=== PATIENT | male | born 1940 | race Caucasian/White ===

== ENCOUNTER 2016-09-18 12:37 | Day surgery (SDC) | payer MEDICARE, BC ==
[~2016-09-18] VITALS: Ht 182.9 cm; Wt 95.0 kg
[~2016-09-18 12:37] MED LIST: ALBUTEROL0.63 MG/3 INH; STOOL SOFTENER240 MG PO; ZANTAC150 MG PO
[2016-09-18 13:31] LABS: BASOPHILS 0.5 % (0.0-2.0); EOSINOPHILS 2.1 % (0-7); HEMATOCRIT 49.5 % (42.0-54.0); HEMOGLOBIN 16.3 g/dL (13.5-17.5); IMMATURE GRANULOCYTES 0.2 % (0-5); LYMPHOCYTES 20.1 % (15-50); MCH 29.6 pg (26.0-34.0); MCHC 32.9 g/dL (31.0-37.0); MCV 89.8 fL (80.0-100.0); MONOCYTES 8.6 % (2-11); NEUTROPHILS 68.5 % (40-80); PLATELET COUNT 209 10x3/uL (130-400); RBC 5.51 10x6/uL (4.20-6.10); RDW 14.9 % (11.5-14.5); WBC 6.3 10x3/uL (4.8-10.8)
[2016-09-18 14:01] LABS: ANION GAP 8.6 mmol/L (8-16); CALCIUM 9.2 mg/dL (8.5-10.1); CREATININE - SERUM 1.2 mg/dL (0.6-1.3); POTASSIUM - SERUM 4.6 mmol/L (3.5-5.1)
[2016-09-18] MEDS ORDERED: PROTONIX40 MG PO (14:03)
[2016-09-18 14:07] VITALS: Ht 182.9 cm; Wt 95.0 kg
--- NOTE | 2016-09-18 14:22 | NUR ---
1420 CALLED XRAT TO DO CXR.
--- NOTE | 2016-09-18 17:00 | NUR ---
1650 BACK FROM COLONOSCOPY. SOME SLEEPY ENCOURAGED TO LIE ON LEFT SIDE AND PASS AIR. RESP EVEN AND NONLABORED AND C/L IN REACH.
--- NOTE | 2016-09-18 18:30 | NUR ---
1720 TOLERATING FULL LIQUIDS. RESP EVEN AND NONLABORED. C/L IN REACH. PASSED AIREARLIER AND CONTINUES TO DO SO.
--- NOTE | 2016-09-18 18:30 | NUR ---
1730 UP WITH ASSISTANCE AND VOIDED.
--- NOTE | 2016-09-18 18:31 | NUR ---
1735 DR. DELGADILLO ROUNDED.
--- NOTE | 2016-09-18 18:34 | NUR ---
1750 WENT OVER DISCHARGE INSTRUCTIONS. INSTRUCTED ON HIGH HFIBER DIET AND INFO GIVEN. INSTRUCTED METAMUCIL WILL HELP BULK STOOLS. INSTRUCTED NO NSAISA AND TO CALL DR GARNER OFFICE TOMORROW FOR A FOLLOW UP APPOINTMENT FOR A CECCAL POLYP. NUMBER PROVIDED TO CALL AND STRESSED IMPORTANCE OF THIS. ALSO INSTRUCTED ON NO NSAIDS AND LIST GONE OVER AND PROVIDED. SO PRESENT AND BOTH VERBALLY UNDERSTANDS.
--- NOTE | 2016-09-18 18:36 | NUR ---
1800 TO HOME VIA W/C WITH S.O.
--- NOTE | 2016-09-22 20:46 | OP ---
PATIENT NAME: ANIYAH GODOY MEDICAL RECORD: [id number] :41 LOCATION[facility] ADMISSION DATE: SURGEON: TRENA DELGADILLO MD DATE OF OPERATION: 09/18/2016 PROCEDURE: Colonoscopy with biopsy and polypectomy. REFERRING PHYSICIAN: Dr. Esteban Laura. INDICATIONS: Mr. Godoy is pleasant 76-year-old gentleman who has had symptoms of lower abdominal pain, constipation has a history of colon polyps. He presents for outpatient colonoscopy. PREMEDICATIONS: Total IV anesthesia (COPD) propofol 200 mg. INSTRUMENT: Olympus video colonoscope. PROCEDURE AND FINDINGS: After receiving informed consent, Mr. Godoy was placed in left lateral decubitus position and sedated as per anesthesia. After achieving an adequate level of sedation, digital rectal exam was performed that showed no external hemorrhoidal tags, fissures or fistulas, normal sphincter tone, no palpable rectal masses. Colonoscope was introduced per rectally and advanced to the cecum without difficulty. The cecum, IC valve, and appendiceal orifice were identified. Within the cecum adjacent to the appendiceal orifice was a diminutive polyp removed with hot biopsy forceps technique, a large complex polyp tucked proximally behind the IC valve was present and was cold biopsied (too large for conventional endoscopic polypectomy removal). As the colonoscope was withdrawn, careful inspection was made of the blevins of the colon. Overall, the mucosa had normal vascular and fold pattern. There was minimal patchy erythema in the ascending colon and biopsies were obtained to rule out microscopic colitis. A few diverticula were also seen scattered in the ascending colon. In the transverse colon were 3 polyps measuring 0.3-0.5 cm in size, sessile, removed with hot biopsy forcep technique. In the descending colon was a 0.5 cm sessile polyp removed with biopsy forcep technique. There was minimal patchy erythema in the sigmoid colon and biopsies were obtained to rule out microscopic colitis. There is moderate number of diverticula seen scattered in the sigmoid colon. In the distal sigmoid colon was a 0.5 cm sessile polyp removed with biopsy forcep technique and retroflexion in the rectum showed mild internal hemorrhoids. A fair prep was present. Mr. Godoy tolerated the procedure well, no immediate complications. Withdrawal time was 11 minutes. ASSESSMENT: 1. Small cecal polyp status post polypectomy. 2. Large cecal polyp (just proximal to IC valve, status post cold biopsy. 3. Three transverse colon polyps, status post polypectomy, descending colon polyp status post polypectomy and sigmoid polyps status post polypectomy. 4. Moderate pandiverticulosis coli. 5. Minimal nonspecific colitis involving the ascending and sigmoid colon status post biopsy. 6. Mild internal hemorrhoids. RECOMMENDATIONS: 1. Follow up histopathology. 2. Avoid aspirin, nonsteroidal anti-inflammatory drugs and WOODARD-2 inhibitors for OPERATIVE REPORT [id number] ANIYAH GODYO 14 days post polypectomy. 3. High fiber diet. 4. Daily Metamucil. 5. Referral to Dr. Benavides for evaluation for ray argon plasma health benefits specialist therapy of large cecal polyp. TRANSINT:[id number] Voice Confirmation ID: [id number] DOCUMENT ID: [id number] TRENA DELGADILLO MD at 2046 CC: ESTEBAN LAURA MD [id number] DICTATION DATE: 09/18/16 1708 MACHINE TOOL OPERATOR: 09/18/16 2104 [facility] 09/18/16 [id number] [place] [address]
== END 2016-09-18 18:00 | disposition home or self-care (01) ==
LOC: D.OPS 12:37
PROVIDERS: Anesthesiology
DX: D12.0 Benign neoplasm of cecum (principal); K63.5 Polyp of colon; K57.30 Diverticulosis of large intestine without perforation or abscess without bleeding; K52.9 Noninfective gastroenteritis and colitis, unspecified; K64.8 Other hemorrhoids

== ENCOUNTER 2016-11-13 07:54 | Day surgery (SDC) | payer MEDICARE, BC ==
[~2016-11-13] VITALS: Ht 182.9 cm; Wt 100.7 kg
[~2016-11-13 07:54] MED LIST changes: +PROTONIX40 MG PO
[2016-11-13 08:50] LABS: BASOPHILS 0.7 % (0.0-2.0); EOSINOPHILS 3.2 % (0-7); HEMATOCRIT 49.6 % (42.0-54.0); HEMOGLOBIN 16.3 g/dL (13.5-17.5); IMMATURE GRANULOCYTES 0.1 % (0-5); LYMPHOCYTES 16.2 % (15-50); MCH 30.1 pg (26.0-34.0); MCHC 32.9 g/dL (31.0-37.0); MCV 91.7 fL (80.0-100.0); MEAN PLATELET VOLUME 9.3 fL (7.4-10.4); MONOCYTES 9.8 % (2-11); PLATELET COUNT 179 10x3/uL (130-400); RBC 5.41 10x6/uL (4.20-6.10); RDW 14.5 % (11.5-14.5); WBC 7.5 10x3/uL (4.8-10.8)
[2016-11-13 09:12] VITALS: BP 125/82; Ht 182.9 cm; Wt 100.7 kg
[2016-11-13 09:19] LABS: APTT 28.6 SECONDS (22.8-39.4); INR 1.02 (0.85-1.17); PROTIME 13.3 SECONDS (11.6-15.0)
--- NOTE | 2016-11-13 13:08 | NUR ---
NO PREP. PATIENT POSITIONED ON STRETCHER.
--- NOTE | 2016-11-13 15:13 | NUR ---
1510--PT VOIDS WITHOUT DIFFICULTY, IV STEFFEN'[facility] RAV
--- NOTE | 2016-11-13 15:26 | NUR ---
1520--DISCHARGE INSTRUCTIONS GIVEN, PT VERBALIZES UNDERSTANDING. PT OFF UNIT VIA CHRISTY. ABDI CULLEN
--- NOTE | 2016-11-22 09:40 | HP ---
PATIENT: ANYIAH GODOY MEDICAL RECORD: [id number] ACCOUNT: [id number] LOCATION:[facility] : 42 ADMISSION DATE: 11/13/16 HISTORY AND PHYSICAL EXAMINATION CHIEF COMPLAINT: Complex colon polyp. HISTORY OF PRESENT ILLNESS: The patient is here for colonoscopy with polypectomy utilizing argon plasma post tensioning ironworker helper. I personally reviewed the pathology report. I personally reviewed the endoscopic photographs. I personally reviewed the endoscopic report. The patient underwent colonoscopy with biopsies and polypectomy on 09/18/[address] Trena Delgadillo. This revealed a small cecal polyp as well as a large cecal polyp. The large cecal polyp was just proximal to the ileocecal valve and was cold biopsied. Within the cecum adjacent to the appendiceal orifice, was a diminutive polyp, which was removed with the hot biopsy forceps polypectomy technique. A large complex polyp tucked approximately behind the ileocecal valve was present and was cold biopsied. It was too large for conventional endoscopic polypectomy removal. The patient was referred for argon plasma coagulation therapy of a large cecal polyp. The risks, possible complications and alternatives to procedure were explained to the patient. He elects to proceed. SOCIAL HISTORY: He is a smoker. I have advised him to quit smoking. ALLERGIES: KEFLEX WHICH CAUSES RASH. HOME MEDICINES: Protonix as well as albuterol. PAST MEDICAL AND SURGICAL HISTORY: COPD, history of lung cancer which is in remission, history of gastroesophageal reflux which is controlled with medication, hiatal hernia, hyperlipidemia, history of cholecystectomy, history of right upper lobectomy. REVIEW OF SYSTEMS: Negative for CVA or seizures. Negative for diabetes or thyroid problems. The review of systems is negative other than as is described above. PHYSICAL EXAMINATION: GENERAL: The patient does not appear acutely ill. He does appear chronically ill. VITAL SIGNS: Reviewed. HEAD: External ears appear normal. EYES: Extraocular movements are intact. NECK: Trachea is midline. CHEST: No intercostal retractions. PULMONARY: Mildly labored. No stridor. ABDOMEN: No peritonitis with movement. EXTREMITIES: No peripheral cyanosis. INTEGUMENT: He has some seborrheic keratoses as well as some telangiectasias. BACK: No thoracic kyphosis. LYMPHATICS: No lymphangitic streaking of the exposed extremities. HISTORY AND PHYSICAL [id number] ANIYAH GODOY IMPRESSION: Large carpeting cecal polyp. 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 PLAN: Colonoscopy with polypectomy utilizing the argon plasma post tensioning ironworker helper. TRANSINT:[id number] Voice Confirmation ID: [id number] DOCUMENT ID: [id number] ABHIJEET UMANZOR MD at 0940 CC: TRENA DELGADILLO MD, MERLYN CLARK MD and REAGAN HANSEN [id number] DICTATION DATE: 11/13/16 1253 [employer] MARKER: 11/13/16 1342 [facility] [place] 11/13/16 [facility] [address] [place] [address]
--- NOTE | 2016-11-22 09:40 | OP ---
PATIENT NAME: ANIYAH GODOY MEDICAL RECORD: [id number] :42 LOCATION:[facility] ADMISSION DATE: SURGEON: ABHIJEET UMANZOR MD DATE OF OPERATION: 11/13/2016 PREOPERATIVE DIAGNOSIS: Complex cecal polyp. POSTOPERATIVE DIAGNOSIS: Complex cecal polyp. PROCEDURES: 1. Total colonoscopy to cecum. 2. Cecal polypectomy utilizing the argon plasma pulp grinder. SURGEON: Abhijeet Umanzor MD SHUTTLE CAR OPERATOR: None. BLOOD LOSS: Minimal. ANESTHESIA: General. COMPLICATIONS: None. The risks, possible complications and alternatives to procedure were explained to the patient. He elects to proceed. OPERATIVE COURSE: The patient was conveyed to the operating room electively on 11/13/2016. General anesthesia was induced by anesthesia staff. The patient was placed in the Hsu position. A digital rectal examination was performed. A colonoscope was inserted through the anus. It was easily advanced to the cecum. The prep was excellent. Multiple cold endoscopic biopsies were obtained of the polyp in the cecum, which was easily seen with narrow band imaging. The polyp was beneath the inferior lip of the cecum. After the area had been thoroughly biopsied, I then ablated the base of the polypoid lesion with the argon plasma pulp grinder utilizing the right colon setting in a forced mode. The endoscope was then withdrawn. I dragged the folds. The pullback was greater than a 14-minute pullback. A retroflexed view was obtained in the rectum. I then unretroflexed the scope and removed it under direct vision. I will see the patient in my office in 2-3 weeks. I will plan for another colonoscopy with the argon plasma pulp grinder in 1 year as there is a significant chance that there will be some regrowth of this polyp. TRANSINT:[id number] Voice Confirmation ID: [id number] DOCUMENT ID: [id number] ABHIJEET UMANZOR MD at 0940 CC: TRENA DELGADILLO MD, ROXIE HARE MD and REAGAN HANSEN [id number] DICTATION DATE: 11/13/16 1508 MARINE EQUIPMENT ENGINEER: 11/14/16 0022 [facility] 11/13/16 [place] [address]
== END 2016-11-13 15:20 | disposition home or self-care (01) ==
LOC: D.OPS 07:54 → D.PAN 11:25 → D.OPS 12:45
PROVIDERS: Anesthesiology
DX: D12.0 Benign neoplasm of cecum (principal); F17.210 Nicotine dependence, cigarettes, uncomplicated; J44.9 Chronic obstructive pulmonary disease, unspecified; Z85.118 Personal history of other malignant neoplasm of bronchus and lung; Z88.8 Allergy status to other drugs, medicaments and biological substances; Z90.2 Acquired absence of lung [part of]; K21.9 Gastro-esophageal reflux disease without esophagitis; E78.5 Hyperlipidemia, unspecified; K44.9 Diaphragmatic hernia without obstruction or gangrene

== ENCOUNTER 2017-11-19 07:17 | Day surgery (SDC) | payer MEDICARE, BC ==
[~2017-11-19] VITALS: Ht 182.9 cm; Wt 99.8 kg
--- NOTE | ~2017-11-19 | OP ---
PATIENT NAME: ANIYAH GODOY MEDICAL RECORD: [id number] :42 LOCATION:[facility] ADMISSION DATE: SURGEON: ABHIJEET UMANZOR MD DATE OF OPERATION: 11/19/2017 PREOPERATIVE DIAGNOSES: History of a complex cecal polyp beneath the inferior lip of the ileocecal valve best seen with narrow band imaging. POSTOPERATIVE DIAGNOSES: History of a complex cecal polyp beneath the inferior lip of the ileocecal valve best seen with narrow band imaging, with regrowth of the polyp, also mild left-sided diverticulosis. PROCEDURES: 1. Total colonoscopy to the cecum. 2. Colonic polypectomy utilizing the argon plasma media technician, which is a radiofrequency type of ablation of a benign colonic process. SURGEON: Abhijeet Umanzor MD RN SCHOOL: None. BLOOD LOSS: Minimal. ANESTHESIA: General. COMPLICATIONS: None. The risks, possible complications, and alternatives to procedure were explained to the patient. He elects to proceed. DESCRIPTION OF PROCEDURE: The patient was conveyed to the operating room electively on 11/19/2017. General anesthesia was induced by the anesthesia staff. The patient was placed in the Hsu position. A digital rectal examination was performed. A colonoscope was inserted through the anus. It was easily advanced to the cecum. The prep was adequate. I slowly withdrew the endoscope. I noted the polyp which was best seen with narrow band imaging. Multiple cold endoscopic biopsies were performed. I then ablated the polypoid base with the argon plasma media technician utilizing the right colon setting in the forced mode. I then continued to withdraw the endoscope. A combination of normal imaging as well as narrow band imaging were utilized. I dragged the folds. The pullback was greater than an 18-minute pullback. A retroflexed view was obtained in the rectum. There were prominent internal hemorrhoids as well as rectal veins. The endoscope was then withdrawn under direct vision. I will see him in my office in 2-3 weeks. I will plan for the next colonoscopy to take place with the argon plasma media technician in 1 year. TRANSINT:[id number] Voice Confirmation ID: [id number] DOCUMENT ID: [id number] OPERATIVE REPORT [id number] ANIYAH GODOY ABHIJEET UMANZOR MD at 1042 CC: TRENA DELGADILLO MD [id number] DICTATION DATE: 11/19/17 1242 MARKETING [employer] OP: 11/19/17 1310 [facility] [place] 11/19/17 [facility] [address] [facility] [address]
[~2017-11-19 07:17] MED LIST changes: +CARAFATE1 G PO; +DEXILANT60 MG PO
[2017-11-19 08:13] LABS: BASOPHILS 0.7 % (0-2); EOSINOPHILS 2.4 % (0-7); HEMATOCRIT 52.5 % (42.0-54.0); HEMOGLOBIN 17.4 g/dL (13.5-17.5); IMMATURE GRANULOCYTES 0.2 % (0-5); LYMPHOCYTES 16.9 % (15-50); MCH 30.6 pg (26.0-34.0); MCHC 33.1 g/dL (31.0-37.0); MCV 92.4 fL (80.0-100.0); MEAN PLATELET VOLUME 9.2 fL (7.4-10.4); MONOCYTES 8.5 % (2-11); NEUTROPHILS 71.3 % (40-80); PLATELET COUNT 183 10x3/uL (130-400); RBC 5.68 10x6/uL (4.20-6.10); RDW 13.5 % (11.5-14.5); WBC 8.6 10x3/uL (4.8-10.8)
[2017-11-19 08:23] LABS: APTT 28.9 SECONDS (22.8-39.4); INR 1.07 (0.85-1.17); PROTIME 13.5 SECONDS (11.6-15.0)
[2017-11-19 08:48] VITALS: BP 128/78; Ht 182.9 cm; Wt 99.8 kg
== END 2017-11-19 14:00 | disposition home or self-care (01) ==
LOC: D.OPS 07:17 → D.PAN 09:45 → D.OPS 09:45 → D.PAN 10:45 → D.OPS 10:45
PROVIDERS: Anesthesiology
DX: D12.0 Benign neoplasm of cecum (principal); J44.9 Chronic obstructive pulmonary disease, unspecified; F17.200 Nicotine dependence, unspecified, uncomplicated; Z01.812 Encounter for preprocedural laboratory examination

== ENCOUNTER 2018-08-28 13:24 | Emergency (ER) | payer MEDICARE, BC ==
[~2018-08-28] VITALS: Ht 182.9 cm; Wt 94.5 kg
[2018-08-28 14:00] VITALS: BP 125/71; Ht 182.9 cm; Wt 94.5 kg
[2018-08-28 14:34] LABS: BASOPHILS 0.4 % (0-2); EOSINOPHILS 2.9 % (0-7); HEMATOCRIT 43.1 % (42.0-54.0); HEMOGLOBIN 14.5 g/dL (13.5-17.5); LYMPHOCYTES 20.1 % (15-50); MCH 30.2 pg (26.0-34.0); MCHC 33.6 g/dL (31.0-37.0); MCV 89.8 fL (80.0-100.0); MONOCYTES 11.7 % (2-11); NEUTROPHILS 64.9 % (40-80); PLATELET COUNT 181 10x3/uL (130-400); RDW 14.1 % (11.5-14.5); WBC 6.9 10x3/uL (4.8-10.8)
[2018-08-28 15:02] LABS: ALBUMIN 3.4 g/dL (3.4-5.0); ALKALINE PHOSPHATASE 141 U/L (46-116); ALT (SGPT) 82 U/L (10-68); BILIRUBIN - TOTAL 0.42 mg/dL (0.2-1.3); CALC OSMOLALITY 283 mosm/kg (275-300); CHLORIDE - SERUM 103 mmol/L (98-107); GLUCOSE 92 mg/dL (74-106); LIPASE 140 U/L (73-393); POTASSIUM - SERUM 3.8 mmol/L (3.5-5.1); PRO BNP 85 pg/mL (0-450); PROTEIN - SERUM 8.4 g/dL (6.4-8.2); SODIUM 142 mmol/L (136-145); TROPONIN-I < 0.017 ng/mL (0.000-0.060); UREA NITROGEN 14 mg/dL (7-18); eGFR NON AFRICAN AMERICAN 77 mL/min (90-120)
[2018-08-28] MEDS ORDERED: COLACE100 MG PO (16:54)
[2018-08-28] MEDS ORDERED: MIRALAX17 GM PO (16:54)
== END 2018-08-28 17:20 | disposition home or self-care (01) ==
LOC: D.ER 13:24
PROVIDERS: Family Medicine
DX: R10.9 Unspecified abdominal pain (principal); J44.9 Chronic obstructive pulmonary disease, unspecified